=== PATIENT | male | born 1935 | race Caucasian/White ===

== ENCOUNTER 2016-07-04 11:07 | Observation (INO) | payer OTHER ==
[~2016-07-04] VITALS: Ht 180.3 cm; Wt 97.3 kg
[2016-07-04 11:51] LABS: BASOPHIL COUNT 0.1 K/uL (0-0.1); EOSINOPHIL (%) 3.3 % (0-5); EOSINOPHIL COUNT 0.2 K/uL (0-0.3); HEMATOCRIT 41.6 % (38.0-50.0); IMMATURE GRANULOCYTE (%) 0.4 % (0.0-0.7); INSTRUMENT ABS NEUTROPHIL CT 3.3 K/uL; LYMPHOCYTE COUNT 1.5 K/uL (1.0-2.8); MCH 30.5 PG (29.0-34.0); MCHC 33.4 G/DL (30.0-36.0); MCV 91.2 FL (86-99); MEAN PLAT.VOLUME 10.5 uM^3 (9.0-12.4); MONOCYTE (%) 8.2 % (3-12); MONOCYTE COUNT 0.5 K/uL (0-0.8); NEUTROPHIL (%) 59.9 % (45-76); NEUTROPHIL COUNT 3.3 K/uL (1.8-6.4); PLATELET COUNT 142 K/uL (156-360); RBC DIS.WIDTH-CV 12.3 % (11.8-14.6); RBC DIS.WIDTH-SD 40.9 % (39-53); RED BLOOD COUNT 4.56 M/uL (4.00-5.50); WHITE BLOOD COUNT 5.5 K/uL (4.1-10.2)
[2016-07-04 12:08] LABS: CHLORIDE 104 mEq/L (99-109); POTASSIUM 4.1 mEq/L (3.7-5.4); SODIUM 139 mEq/L (136-147)
[2016-07-04 12:09] LABS: MAGNESIUM 2.1 mg/dL (1.3-2.7)
[2016-07-04 12:10] LABS: GLUCOSE 122 mg/dL (70-99)
[2016-07-04 12:11] LABS: ANION GAP 12 MEQ/L (2-14)
[2016-07-04 12:14] LABS: GFR ESTIMATE (CALCULATED) > 59 mL/min/; UREA NITROGEN (BUN) 18 mg/dL (9-23)
[2016-07-04 12:16] LABS: TROP-I INTERPRETATION NEGATIVE; TROPONIN-I < 0.01 ng/mL (0.0-0.30)
[2016-07-04] MEDS ORDERED: ASPIRIN81 M2 PO (14:11)
[2016-07-04] MEDS ORDERED: ZOCOR40 MG PO (14:11)
[2016-07-04 16:56] VITALS: BP 147/70
[2016-07-04 18:30] LABS: TROP-I INTERPRETATION NEGATIVE; TROPONIN-I 0.03 ng/mL (0.0-0.30)
[2016-07-04 20:00] VITALS: BP 129/72
[2016-07-05] VITALS: BP 136/65
[2016-07-05 01:11] LABS: TROP-I INTERPRETATION NEGATIVE; TROPONIN-I < 0.01 ng/mL (0.0-0.30)
[2016-07-05 03:41] VITALS: BP 111/65
[2016-07-05 07:45] VITALS: BP 120/66
== END 2016-07-05 11:02 | disposition home or self-care (01) ==
LOC: EME → EDBD 11:07 → EME 11:07 → EDOF 13:30 → 5WEST 15:08
PROVIDERS: Emergency Medicine; Internal Medicine
DX: R55 Syncope and collapse (principal); I35.0 Nonrheumatic aortic (valve) stenosis; D69.6 Thrombocytopenia, unspecified; E78.5 Hyperlipidemia, unspecified; M10.9 Gout, unspecified
CPT/HCPCS: 80048; 83735; 84484; 85025; 93005; 93880; 99281; 99285; G0378; J1650